=== PATIENT | male | born 1990 ===

== ENCOUNTER 2021-08-04 17:07 | Emergency (ER) | payer MEDICAID | END 2021-08-04 17:42 | disposition home or self-care (01) | LOC: LL.ED 17:07 | DX: H20.9 Unspecified iridocyclitis (principal); Z91.018 Allergy to other foods | CPT/HCPCS: 99283 ==

== ENCOUNTER 2021-08-25 11:52 | Emergency (ER) | payer MEDICAID ==
[2021-08-25] MEDS: Magnesium Citrate Solution 296 ML Bottle PO ONE (12:28)
[2021-08-25] MEDS: Ketorolac 30 MG/ML SDV IM ONE (12:29)
[2021-08-25 12:47] LABS: ANION GAP 7.5 meq/L (7-15); CHLORIDE,CL 102 mmol/L (98-107); SODIUM,NA 139 mmol/L (136-145)
[2021-08-25 12:48] LABS: ESTIMATED GFR 113 mL/min (>=60)
== END 2021-08-25 12:56 | disposition home or self-care (01) ==
LOC: LL.ED 11:52
DX: R10.9 Unspecified abdominal pain (principal); K59.01 Slow transit constipation; Z91.018 Allergy to other foods; Z79.899 Other long term (current) drug therapy
CPT/HCPCS: 36415; 74018; 80053; 85025; 99284; A9270; J1885